=== PATIENT | male | born 1990 | race Caucasian/White ===

== ENCOUNTER 2016-08-02 20:59 | Emergency (ER) | payer OTHER ==
--- NOTE | 2016-08-13 14:22 | ER ---
ADMIT: 08/02/2016 RM/LOC: ER [facility] MR#: [id number] [address] [place], [place] [id number] [address] [place] [address] Emergency Room Report SEX: M AGE: 26 : 1990 DATE: 08/02/2016 ADDENDUM: CHIEF COMPLAINT: Abdominal pain. HISTORY OF PRESENT ILLNESS: This is a 26-year-old male, who has developed abdominal pain within the last few days. He did see his doctor in [place] yesterday, they did lab work on him at that time including urine and everything was normal per patient. Test done here in the emergency room H. pylori, which was nonreactive. Serum ketones, which were negative. Lactic acid was 1.0. CMP is normal except for glucose of 176. Albumin 3.1. Amylase and lipase low at 16 and 68. PH is 7.375. CBC is normal except for hemoglobin of 12.7. He denies any black stools or diarrhea. At this time, I am still awaiting the ultrasound report. Dr. Garza will give the patient ultrasound report and then have him follow up tomorrow. CLINICAL IMPRESSION: Right and left upper quadrant abdominal pain. BISI Finley / Eleazar Garza MD / izabell JOB #: [id number] CC: Eleazar Garza MD, Attending Physician Tor Nguyen MD, Family Physician
== END 2016-08-03 00:30 | disposition home or self-care (01) ==
LOC: ER 20:59
DX: R10.11 Right upper quadrant pain (principal); R10.12 Left upper quadrant pain; E11.9 Type 2 diabetes mellitus without complications; Z79.84 Long term (current) use of oral hypoglycemic drugs; Z88.1 Allergy status to other antibiotic agents; Z79.899 Other long term (current) drug therapy

== ENCOUNTER → 2016-08-03 | Outpatient (CLI) | payer OTHER | END | disposition home or self-care (01) | LOC: RAD.S 09:30 | DX: R10.11 Right upper quadrant pain (principal) ==